=== PATIENT | male | born 1960 | race Caucasian/White ===

== ENCOUNTER 2021-11-04 02:12 | Inpatient (IN) | payer OTHER ==
[~2021-11-04] VITALS: Ht 175.3 cm; Wt 75.1 kg
--- NOTE | 2021-11-04 01:30 | NUR ---
The patient, DRAGAN LIM, 61 y/o, M admitted for Sepsis transferring from [facility] by TRENA DELACRUZ III, DO, was given written information regarding hospital policies, unit procedures and contact persons. Patient alert and oriented x 4. Patient denies any c/o at this time. Patient oriented to room, bed, call light, phone and POC. Call light in reach, Patient verbalized understanding of need to use call light for assistance. Valuables were checked and Patient states he wears glasses but left them at home. Upper and lower dentures with Patient. 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
[2021-11-04] MEDS ORDERED: PIP/TAZO PER PHARMACY MC PRN (03:00)
[2021-11-04 03:09] VITALS: BP 163/92
[2021-11-04] MEDS: PIPERACILLIN/TAZOBACTAM 3.375 GM in IV NORMAL SALINE 50ML 50 ML IV SCH ×3 (04:03→17:37)
[2021-11-04] MEDS: IV NORMAL SALINE 1000ML BAG 1,000 ML IV SCH ×2 (06:04→20:26)
[2021-11-04 06:32] LABS: BASO % 0 % (0-3); EOS % 0 % (0-3); HEMOGLOBIN 16.6 g/dL (13.0-17.5); LYMPH # 1.3 x10^3/uL (1.0-4.8); LYMPH % 28 % (24-48); MEAN CORPUSCULAR HEMOGLOBIN 34 pg (25-35); MEAN CORPUSCULAR HGB CONC 35 g/dL (31-37); MEAN CORPUSCULAR VOLUME 99 fL (79-100); MONO # 0.1 x10^3/uL (0.0-1.1); MONO % 1 % (0-9); NEUT # 3.2 x10^3/uL (1.8-7.7); NEUT % 70 % (31-73); PLATELET COUNT 189 x10^3/uL (140-400); RED BLOOD COUNT 4.85 x10^6/uL (4.30-5.70); RED CELL DISTRIBUTION WIDTH 13.7 % (11.5-14.5); WHITE BLOOD COUNT 4.6 x10^3/uL (4.0-11.0)
[2021-11-04 07:00] VITALS: BP 137/99
[2021-11-04 07:00] LABS: CALCIUM 8.6 mg/dL (8.5-10.1); CREATININE 0.8 mg/dL (0.7-1.3); GFR 98.3; POTASSIUM 3.1 mmol/L (3.5-5.1)
[2021-11-04] MEDS ORDERED: CHOL4POW6 PO (08:10)
[2021-11-04] MEDS ORDERED: BACL10TA PO (08:10)
[2021-11-04] MEDS ORDERED: HYDR-2769 PO (08:10)
[2021-11-04] MEDS ORDERED: ALLO300T PO (08:10)
[2021-11-04] MEDS ORDERED: NAPR-514 PO (08:10)
[2021-11-04] MEDS ORDERED: AMLO-187 PO (08:10)
[2021-11-04] MEDS ORDERED: OMEP40CA7 PO (08:10)
[2021-11-04] MEDS: LACTOBACILLUS RHAMNOSUS GG 1 CAPSULE. PO SCH ×2 (09:06→11:13)
[2021-11-04] MEDS ORDERED: CHOL500021 PO (09:34)
--- NOTE | 2021-11-04 10:33 | PDOC1 ---
History and Physical Date of Admission Date of Admission DATE: 11/04/21 TIME: 10:16 Identification/Chief Complaint Chief Complaint Headache/blurry vision Source Source: Patient History of Present Illness History of Present Illness Patient 61-year-old male with past medical history cerebral palsy, hemochromatosis, who presents to the ED with complaints of severe right-sided headache and right blurry vision. He was evaluated with CT head and CTA head head and neck that showed no acute findings. Labs on admission showed WBC 9.7, magnesium 0.6, CRP 3.7, lactic acid 4.3, with repeat 2.2. He notes a history of chronic weakness to lower extremities which caused him to have multiple falls over the past several years. Patient notes he has not had a fall in the past 1 or 2 years. At the time of my evaluation he is currently complaining of right- sided headache. His speech is somewhat slurred but patient states this is normal for him. His blurry vision spontaneously resolved in the ED, but he was sent to our facility for concerns of lactic acidosis and higher level care. Past Medical History Past Medical History Cerebral palsy, pulmonary hypertension, HTN, HLD, hemochromatosis Past Surgical History Past Surgical History Splenectomy Family History Family History Hemochromatosis, hypertension, pancreatic cancer Social History Smoke: No ALCOHOL: none Drugs: None Current Medications Current Medications Current Medications Sodium Chloride 1,000 ml @ 75 mls/hr [id number] IV Last administered on 11/04/21at 06:04; Start 11/04/21 at 03:00 Piperacillin Sod/ Tazobactam Sod (Zosyn Per Pharmacy) 1 each PRN DAILY PRN MC SEE COMMENTS; Start 11/04/21 at 03:00 Piperacillin Sod/ Tazobactam Sod 3.375 gm/Sodium Chloride 50 ml @ 100 mls/hr Q6HRS IV Last administered on 11/04/21at 04:03; Start 11/04/21 at 04:00 Lactobacillus Rhamnosus (Culturelle) 1 cap BID PO Last administered on 11/04/21at 09:06; Start 11/04/21 at 09:00 Active Scripts Active Reported D3-50 (Cholecalciferol (Vitamin D3)) 50,000 Unit Capsule 50,000 Unit PO WEEKLY Hydrocodone-Apap 10-325 (Hydrocodone Bit/Acetaminophen) 1 Tab Tablet 1 Tab PO PRN Q6HRS PRN Amlodipine Besylate 10 Mg Tablet 10 Mg PO DAILY Allopurinol 300 Mg Tablet 1 Tab PO DAILY Baclofen 10 Mg Tablet 1 Tab PO PRN Q4HRS PRN Omeprazole 40 Mg Capsule. 1 Cap PO DAILY Naproxen 500 Mg Tablet 1 Tab PO QIDPRN PRN 30 Days Cholestyramine Packet (Cholestyramine (With Sugar)) 4 Gm Powd.pack 4 Gm PO DAILY Allergies Allergies: Coded Allergies: morphine (Verified Allergy, Unknown, 11/04/21) ROS Review of System GENERAL: No history of weight change or fevers. SKIN: No bruising, hair changes or rashes. EYES: No blurred, double or loss of vision. NOSE AND THROAT: No history of nosebleeds, hoarseness or sore throat. HEART: Denies chest pain, denies palpitations. LUNGS: Denies cough, hemoptysis, wheezing or shortness of breath. GASTROINTESTINAL: Denies nausea, vomiting, abdominal pain. GENITOURINARY: Denies dysuria, frequency, urgency, hematuria. NEUROLOGIC: Right headache. Denies history of numbness, tingling, or tremors. PSYCHIATRIC: Denies anxiety, denies depression. ENDOCRINE: No history of heat or cold intolerance, polyuria or polydipsia. EXTREMITIES: Bilateral lower extremity weakness and difficulty walking. Denies joint pain or stiffness. Physical Exam Physical Exam General: Alert, Oriented X3, Cooperative, No acute distress HEENT: PERRLA, EOMI Lungs: Clear to auscultation, Normal air movement Heart: RRR, systolic murmur Cardiovascular: S1, S2 Abdomen: Normal bowel sounds, Soft, No tenderness Extremities: No clubbing, No cyanosis Skin: No rashes, No significant lesion Neuro: Slurred speech. Lower extremity strength 2/5 bilaterally. Upper extremity strength 4/5 bilaterally. Normal tone, Sensation intact Psych/Mental Status: Mental status NL, Mood NL Vitals Vitals Vital Signs Date Time Temp Pulse Resp B/P (MAP) Pulse Ox O2 Delivery O2 Flow Rate FiO2 11/04/21 08:00 Nasal Cannula 3.0 11/04/21 07:00 98.3 99 16 137/99 (112) 91 98.3 Labs Labs Laboratory Tests Test 11/04/21 04:50 11/04/21 05:25 Sodium Level 142 mmol/L (136-145) Potassium Level 3.1 mmol/L (3.5-5.1) Chloride Level 102 mmol/L (98-107) Carbon Dioxide Level 27 mmol/L (21-32) Anion Gap 13 (6-14) Blood Urea Nitrogen 5 mg/dL (8-26) Creatinine 0.8 mg/dL (0.7-1.3) Estimated GFR (Cockcroft-Gault) 98.3 Glucose Level 156 mg/dL (70-99) Calcium Level 8.6 mg/dL (8.5-10.1) White Blood Count 4.6 x10^3/uL (4.0-11.0) Red Blood Count 4.85 x10^6/uL (4.30-5.70) Hemoglobin 16.6 g/dL (13.0-17.5) Hematocrit 48.0 % (39.0-53.0) Mean Corpuscular Volume 99 fL (79-100) Mean Corpuscular Hemoglobin 34 pg (25-35) Mean Corpuscular Hemoglobin Concent 35 g/dL (31-37) Red Cell Distribution Width 13.7 % (11.5-14.5) Platelet Count 189 x10^3/uL (140-400) Neutrophils (%) (Auto) 70 % (31-73) Lymphocytes (%) (Auto) 28 % (24-48) Monocytes (%) (Auto) 1 % (0-9) Eosinophils (%) (Auto) 0 % (0-3) Basophils (%) (Auto) 0 % (0-3) Neutrophils # (Auto) 3.2 x10^3/uL (1.8-7.7) Lymphocytes # (Auto) 1.3 x10^3/uL (1.0-4.8) Monocytes # (Auto) 0.1 x10^3/uL (0.0-1.1) Eosinophils # (Auto) 0.0 x10^3/uL (0.0-0.7) Basophils # (Auto) 0.0 x10^3/uL (0.0-0.2) Laboratory Tests Test 11/04/21 04:50 11/04/21 05:25 Sodium Level 142 mmol/L (136-145) Potassium Level 3.1 mmol/L (3.5-5.1) Chloride Level 102 mmol/L (98-107) Carbon Dioxide Level 27 mmol/L (21-32) Anion Gap 13 (6-14) Blood Urea Nitrogen 5 mg/dL (8-26) Creatinine 0.8 mg/dL (0.7-1.3) Estimated GFR (Cockcroft-Gault) 98.3 Glucose Level 156 mg/dL (70-99) Calcium Level 8.6 mg/dL (8.5-10.1) White Blood Count 4.6 x10^3/uL (4.0-11.0) Red Blood Count 4.85 x10^6/uL (4.30-5.70) Hemoglobin 16.6 g/dL (13.0-17.5) Hematocrit 48.0 % (39.0-53.0) Mean Corpuscular Volume 99 fL (79-100) Mean Corpuscular Hemoglobin 34 pg (25-35) Mean Corpuscular Hemoglobin Concent 35 g/dL (31-37) Red Cell Distribution Width 13.7 % (11.5-14.5) Platelet Count 189 x10^3/uL (140-400) Neutrophils (%) (Auto) 70 % (31-73) Lymphocytes (%) (Auto) 28 % (24-48) Monocytes (%) (Auto) 1 % (0-9) Eosinophils (%) (Auto) 0 % (0-3) Basophils (%) (Auto) 0 % (0-3) Neutrophils # (Auto) 3.2 x10^3/uL (1.8-7.7) Lymphocytes # (Auto) 1.3 x10^3/uL (1.0-4.8) Monocytes # (Auto) 0.1 x10^3/uL (0.0-1.1) Eosinophils # (Auto) 0.0 x10^3/uL (0.0-0.7) Basophils # (Auto) 0.0 x10^3/uL (0.0-0.2) Images Images EXAM: CTA HEAD AND NECK W/WO CONTRAST DATE: 11/03/2021 5:03 PM INDICATION: Reason: sudden severe headache, vision change / Spl. Instructions: OMNI 350 100ML IV / History: TECHNIQUE: CTA angiogram of the head and neck was obtained after IV bolus administration of 75 cc of Isovue-370. The images were sent to workstation and multiplanar reconstructions were obtained. Multiplanar reconstruction images to include MIP and 3-D reconstruction images are submitted. One or more of the following dose reduction techniques were utilized: Automated exposure control (AEC), Adjustment of mA and/or kV according to patient size, Use of iterative reconstruction technique such as ASiR, CT scan done according to ALARA and image gently/image wisely COMPARISON: None. FINDINGS: CTA Head: The vertex is excluded from the [id number]. Limiting evaluation of the superior sagittal sinus. The remaining portions of the dural venous sinuses are patent. The visualized distal internal carotid arteries, anterior and middle cerebral arteries are patent and normal caliber. The distal vertebral arteries, basilar artery, and posterior cerebral arteries are patent and normal caliber. No aneurysm or arteriovenous malformation is seen. CTA Neck: Right carotid: The right common carotid artery is patent and normal caliber. The carotid bifurcation is normal. No stenosis of the right internal carotid artery per NASCET criteria. The right external carotid artery is patent. Left carotid: The left common carotid artery is patent and normal caliber. The carotid bifurcation is normal. No stenosis of the left internal carotid artery per NASCET criteria. The left external carotid artery is patent. Right vertebral: The right vertebral artery tortuous but patent and normal caliber. Left vertebral: The left vertebral artery tortuous but patent and normal caliber. The visualized portions of the aortic arch are normal. The origins of the brachiocephalic and subclavian arteries are normal. No cervical lymphadenopathy. The thyroid gland is normal. The parotid and submandibular glands are normal. The visualized aerodigestive tract is unremarkable. The cervical spine is normal. The visualized portions of the lungs are clear. IMPRESSION: 1. No aneurysm. No intracranial stenosis or occlusion. 2. No hemodynamically significant stenosis of the cervical carotid or vertebral arteries. PQRS Compliance Statement - Stenosis calculations for CT, MR and conventional angiography are based upon measurement of the distal ICA diameter in accordance with the NASCET methodology. Electronically signed by: Erica Mayer DO (11/03/2021 5:23 PM) [facility] DICTATED AND SIGNED BY: ERICA MAYER DO DATE: 11/03/211711 CC: DK GAMEZ DO; ARUN NUNEZ MD ~MTH0 0 EXAMINATION: CT head without IV contrast INDICATION:61 years, Male, vision change. COMPARISON: None TECHNIQUE: Spiral acquisition of contiguous images from the skull base to the vertex were obtained. Sagittal and coronal 2D reformatted series were provided by the technologist. Soft tissue and bone window algorithms were reviewed. Exposure: One or more of the following individualized dose reduction techniques were utilized for this examination: 1. Automated exposure control 2. Adjustment of the mA and/or kV according to patient size 3. Use of iterative reconstruction technique. FINDINGS: Neither mass, midline shift, intracranial hemorrhage, acute/subacute ischemic changes, nor extraaxial fluid collections are seen. The brain parenchyma is normal in appearance. The ventricles are normal in size. The paranasal sinuses, mastoid air cells, and middle ears are clear. The orbital contents appear within normal limits. Review of bone windows reveals no acute osseous process. IMPRESSION: No evidence of acute intracranial abnormality. PATIENT: DRAGAN LIM ACCOUNT: [id number] : 1960 LOCATION: ER AGE: 61 SEX: M EXAM STATUS: REG ER ORD. PHYSICIAN: MADHAV GARCIA MD REASON: AMS PROCEDURE: CHEST AP ONLY Exam Date: 11/03/2021 6:54 PM XR CHEST 1V Indication: Reason: AMS / Spl. Instructions: / History: . Comparison: September 09, 2021 FINDINGS/ IMPRESSION: Right basilar scarring and/or atelectasis persists. The cardiac silhouette and pulmonary vasculature are within normal limits. There is no focal consolidation, pleural effusion or pneumothorax. VTE Prophylaxis Ordered VTE Prophylaxis Devices: No VTE Pharmacological Prophylaxi: Yes Assessment/Plan Assessment/Plan Lactic acidosis CVA? Hypomagnesemia Cerebral palsy Plan: Repeat lactic acid Place consult to neurology. Some concern given his history of hemochromatosis for acute CVA, but normal CT and CTA head neck. Repeat magnesium and replace as necessary Resume home meds FEN - Cardiac diet PPX - Lovenox FULL CODE Dispo - inpatient for above Justifications for Admission Other Justification FELISHA QUINTEROS MD Nov 04, 2021 10:33
[2021-11-04 11:00] VITALS: BP 145/97
[2021-11-04] MEDS ORDERED: NAPROXEN 500 MG TABLET PO PRN (11:00)
[2021-11-04] MEDS: HYDROcodone/APAP 10/325 1 TAB TABLET PO PRN ×3 (11:12→21:22)
[2021-11-04] MEDS: PANTOPRAZOLE 40 MG TABLET.DR. PO SCH (11:13)
[2021-11-04] MEDS: ALLOPURINOL 300 MG TABLET. PO SCH (11:13)
[2021-11-04] MEDS ORDERED: POTASSIUM CHLORIDE 20 MEQ TABLET.ER. PO ONE (12:00)
--- NOTE | 2021-11-04 13:46 | NUR ---
SW following. Discussed with RN, pt from home with , 3L (uses oxygen at home), regular diet. Neurology consulted. RN advised no SW needs at this time. SW will continue to follow.
--- NOTE | 2021-11-04 14:30 | PDOC2 ---
NEUROLOGY CONSULT Date of Service DOS: DATE: 11/04/21 TIME: 14:21 Reason for Consult Reason for Consult: Possible stroke Referring Physician Referring Physician: Dr. Oconnor Source Source: Chart review, Patient History of Present Illness History of Present Illness The patient is a 61-year-old right-handed male who presented to [facility] emergency department yesterday activated as code stroke because of sudden onset of headache at 1625 with blurred vision. He says that he gets these headaches on the right side occasionally, no more than once a year, not associated with nausea or photo phonophobia. There were no other deficits, NIH score was zero in the emergency department. He responded to Toradol/Benadryl/Reglan/fentanyl. However, he was found to have gap acidosis with lactic acidosis along with hypoglycemia with blood sugar 49, hypomagnesemia, hypocalcemia, chest x-ray suspicious for pneumonia. Patient has a history of cerebral palsy and gets around with a quad cane. He has a spastic gait by his description. There is no history of stroke, seizure, or head injury Past Medical History Cardiovascular: HTN, PR, Hyperlipidemia CENTRAL NERVOUS SYSTEM: Other (Cerebral palsy, headaches) Heme/Onc: Hemochromatosis Musculoskeletal: Other (Fractures of left ankle, left arm, ribs) Past Surgical History Past Surgical History: No pertinent history Family History Family History: Cancer, Other (Migraines) Social History Social History , works for a [email or web address], alcohol on the weekends, no tobacco or street drugs Current Medications Current Medications Current Medications Sodium Chloride 1,000 ml @ 75 mls/hr [id number] IV Last administered on 11/04/21at 06:04; Start 11/04/21 at 03:00 Piperacillin Sod/ Tazobactam Sod (Zosyn Per Pharmacy) 1 each PRN DAILY PRN [facility] SEE COMMENTS; Start 11/04/21 at 03:00 Piperacillin Sod/ Tazobactam Sod 3.375 gm/Sodium Chloride 50 ml @ 100 mls/hr Q6HRS IV Last administered on 11/04/21at 04:03; Start 11/04/21 at 04:00 Lactobacillus Rhamnosus (Culturelle) 1 cap BID PO Last administered on 11/04/21at 11:13; Start 11/04/21 at 09:00 Potassium Chloride (Klor-Con) 40 meq 1X ONCE PO Last administered on 11/04/21at 11:13; Start 11/04/21 at 12:00; Stop 11/04/21 at 12:01; Status DC Allopurinol (Zyloprim) 300 mg DAILY PO Last administered on 11/04/21at 11:13; Start 11/04/21 at 12:00 Amlodipine Besylate (Norvasc) 10 mg DAILY PO Last administered on 11/04/21at 11:13; Start 11/04/21 at 12:00 Baclofen (Lioresal) 10 mg PRN Q4HRS PRN PO PAIN; Start 11/04/21 at 11:00 Acetaminophen/ Hydrocodone Bitart (Lortab 10/325) 1 tab PRN Q6HRS PRN PO PAIN Last administered on 11/04/21at 11:12; Start 11/04/21 at 11:00 Naproxen (Naprosyn) 500 mg QIDPRN PRN PO PAIN; Start 11/04/21 at 11:00 Ergocalciferol (Vitamin D2) 50,000 unit WEEKLY PO ; Start 11/11/21 at 09:00 Cholestyramine Resin (Questran Light) 4 gm DAILY PO ; Start 11/05/21 at 09:00 Pantoprazole Sodium (Protonix) 40 mg DAILYAC PO Last administered on 11/04/21at 11:13; Start 11/04/21 at 12:00 Active Scripts Active Reported D3-50 (Cholecalciferol (Vitamin D3)) 50,000 Unit Capsule 50,000 Unit PO WEEKLY Hydrocodone-Apap 10-325 (Hydrocodone Bit/Acetaminophen) 1 Tab Tablet 1 Tab PO PRN Q6HRS PRN Amlodipine Besylate 10 Mg Tablet 10 Mg PO DAILY Allopurinol 300 Mg Tablet 1 Tab PO DAILY Baclofen 10 Mg Tablet 1 Tab PO PRN Q4HRS PRN Omeprazole 40 Mg Capsule.dr 1 Cap PO DAILY Naproxen 500 Mg Tablet 1 Tab PO QIDPRN PRN 30 Days Cholestyramine Packet (Cholestyramine (With Sugar)) 4 Gm Powd.pack 4 Gm PO DAILY Allergies Allergies: Coded Allergies: morphine (Verified Allergy, Unknown, 11/04/21) ROS Review of System Negative for fever, chills, weight loss, shortness of breath, chest pain, indigestion, hematochezia, melena, and dysuria. Full 14-point review of systems is negative. Physical Exam Physical Examination General: Well-developed, well-nourished, white male, in no acute distress HEENT: Normocephalic andatraumatic. TTemporal arteriespulsatile and nontender. Neck: Supple without bruit, no meningismus Musculoskeletal: Stability:see neurologic. Gait exam:see neurologic. Tone:see neurologic.Strength:see neurologic. Neurological: Mental Status:intact, orientation, memory, attention span/concentration, language, fund of knowledge normal. Cranial Nerves:Pupils equal and reactive to light, extraocular movements areintact, visual rothman are full to confrontation. Facial sensation is normal. There is no facial asymmetry. Spastic dysarthria. Vestibulo-ocular reflex is intact. Palate elevates and tongue protrudes in midline. All other cranial related problems are negative except as mentioned before.Reflexes:2+ and symmetric with flexor plantar res ponses. Motor:5/5 strength increased tone bilaterally, normal bulk. Coordination:Finger-nose finger and vigb-un-tcta testing are normal. Rapid alternating movements and fine finger movements are intact. Gait:Not tested, he does not have his cane with him. Sensory:Normal pinprick, vibration, light touch, proprioception. Vitals VITALS Vital Signs Date Time Temp Pulse Resp B/P (MAP) Pulse Ox O2 Delivery O2 Flow Rate FiO2 11/04/21 11:13 99 137/99 11/04/21 08:00 Nasal Cannula 3.0 11/04/21 07:00 98.3 16 91 98.3 Labs Labs Laboratory Tests Test 11/04/21 04:50 11/04/21 05:25 11/04/21 11:11 Sodium Level 142 mmol/L (136-145) Potassium Level 3.1 mmol/L (3.5-5.1) Chloride Level 102 mmol/L (98-107) Carbon Dioxide Level 27 mmol/L (21-32) Anion Gap 13 (6-14) Blood Urea Nitrogen 5 mg/dL (8-26) Creatinine 0.8 mg/dL (0.7-1.3) Estimated GFR (Cockcroft-Gault) 98.3 Glucose Level 156 mg/dL (70-99) Calcium Level 8.6 mg/dL (8.5-10.1) Magnesium Level 2.1 mg/dL (1.8-2.4) White Blood Count 4.6 x10^3/uL (4.0-11.0) Red Blood Count 4.85 x10^6/uL (4.30-5.70) Hemoglobin 16.6 g/dL (13.0-17.5) Hematocrit 48.0 % (39.0-53.0) Mean Corpuscular Volume 99 fL (79-100) Mean Corpuscular Hemoglobin 34 pg (25-35) Mean Corpuscular Hemoglobin Concent 35 g/dL (31-37) Red Cell Distribution Width 13.7 % (11.5-14.5) Platelet Count 189 x10^3/uL (140-400) Neutrophils (%) (Auto) 70 % (31-73) Lymphocytes (%) (Auto) 28 % (24-48) Monocytes (%) (Auto) 1 % (0-9) Eosinophils (%) (Auto) 0 % (0-3) Basophils (%) (Auto) 0 % (0-3) Neutrophils # (Auto) 3.2 x10^3/uL (1.8-7.7) Lymphocytes # (Auto) 1.3 x10^3/uL (1.0-4.8) Monocytes # (Auto) 0.1 x10^3/uL (0.0-1.1) Eosinophils # (Auto) 0.0 x10^3/uL (0.0-0.7) Basophils # (Auto) 0.0 x10^3/uL (0.0-0.2) Lactic Acid Level 1.2 mmol/L (0.4-2.0) Laboratory Tests Test 11/04/21 04:50 11/04/21 05:25 11/04/21 11:11 Sodium Level 142 mmol/L (136-145) Potassium Level 3.1 mmol/L (3.5-5.1) Chloride Level 102 mmol/L (98-107) Carbon Dioxide Level 27 mmol/L (21-32) Anion Gap 13 (6-14) Blood Urea Nitrogen 5 mg/dL (8-26) Creatinine 0.8 mg/dL (0.7-1.3) Estimated GFR (Cockcroft-Gault) 98.3 Glucose Level 156 mg/dL (70-99) Calcium Level 8.6 mg/dL (8.5-10.1) Magnesium Level 2.1 mg/dL (1.8-2.4) White Blood Count 4.6 x10^3/uL (4.0-11.0) Red Blood Count 4.85 x10^6/uL (4.30-5.70) Hemoglobin 16.6 g/dL (13.0-17.5) Hematocrit 48.0 % (39.0-53.0) Mean Corpuscular Volume 99 fL (79-100) Mean Corpuscular Hemoglobin 34 pg (25-35) Mean Corpuscular Hemoglobin Concent 35 g/dL (31-37) Red Cell Distribution Width 13.7 % (11.5-14.5) Platelet Count 189 x10^3/uL (140-400) Neutrophils (%) (Auto) 70 % (31-73) Lymphocytes (%) (Auto) 28 % (24-48) Monocytes (%) (Auto) 1 % (0-9) Eosinophils (%) (Auto) 0 % (0-3) Basophils (%) (Auto) 0 % (0-3) Neutrophils # (Auto) 3.2 x10^3/uL (1.8-7.7) Lymphocytes # (Auto) 1.3 x10^3/uL (1.0-4.8) Monocytes # (Auto) 0.1 x10^3/uL (0.0-1.1) Eosinophils # (Auto) 0.0 x10^3/uL (0.0-0.7) Basophils # (Auto) 0.0 x10^3/uL (0.0-0.2) Lactic Acid Level 1.2 mmol/L (0.4-2.0) Images Images EXAM: CTA HEAD AND NECK W/WO CONTRAST DATE: 11/03/2021 5:03 PM INDICATION: Reason: sudden severe headache, vision change / Spl. Instructions: OMNI 350 100ML IV / History: TECHNIQUE: CTA angiogram of the head and neck was obtained after IV bolus administration of 75 cc of Isovue-370. The images were sent to workstation and multiplanar reconstructions were obtained. Multiplanar reconstruction images to include MIP and 3-D reconstruction images are submitted. One or more of the following dose reduction techniques were utilized: Automated exposure control (AEC), Adjustment of mA and/or kV according to patient size, Use of iterative reconstruction technique such as ASiR, CT scan done according to ALARA and image gently/image wisely COMPARISON: None. FINDINGS: CTA Head: The vertex is excluded from the [id number]. Limiting evaluation of the superior sagittal sinus. The remaining portions of the dural venous sinuses are patent. The visualized distal internal carotid arteries, anterior and middle cerebral arteries are patent and normal caliber. The distal vertebral arteries, basilar artery, and posterior cerebral arteries are patent and normal caliber. No aneurysm or arteriovenous malformation is seen. CTA Neck: Right carotid: The right common carotid artery is patent and normal caliber. The carotid bifurcation is normal. No stenosis of the right internal carotid artery per NASCET criteria. The right external carotid artery is patent. Left carotid: The left common carotid artery is patent and normal caliber. The carotid bifurcation is normal. No stenosis of the left internal carotid artery per NASCET criteria. The left external carotid artery is patent. Right vertebral: The right vertebral artery tortuous but patent and normal caliber. Left vertebral: The left vertebral artery tortuous but patent and normal caliber. The visualized portions of the aortic arch are normal. The origins of the brachiocephalic and subclavian arteries are normal. No cervical lymphadenopathy. The thyroid gland is normal. The parotid and submandibular glands are normal. The visualized aerodigestive tract is unremarkable. The cervical spine is normal. The visualized portions of the lungs are clear. IMPRESSION: 1. No aneurysm. No intracranial stenosis or occlusion. 2. No hemodynamically significant stenosis of the cervical carotid or vertebral arteries. EXAMINATION: CT head without IV contrast INDICATION:61 years, Male, vision change. COMPARISON: None TECHNIQUE: Spiral acquisition of contiguous images from the skull base to the vertex were obtained. Sagittal and coronal 2D reformatted series were provided by the technologist. Soft tissue and bone window algorithms were reviewed. Exposure: One or more of the following individualized dose reduction techniques were utilized for this examination: 1. Automated exposure control 2. Adjustment of the mA and/or kV according to patient size 3. Use of iterative reconstruction technique. FINDINGS: Neither mass, midline shift, intracranial hemorrhage, acute/subacute ischemic changes, nor extraaxial fluid collections are seen. The brain parenchyma is normal in appearance. The ventricles are normal in size. The paranasal sinuses, mastoid air cells, and middle ears are clear. The orbital contents appear within normal limits. Review of bone windows reveals no acute osseous process. IMPRESSION: No evidence of acute intracranial abnormality. Assessment/Plan Assessment/Plan Impression: Toxic headache due to sepsis syndrome, has some migraine features, has had these headaches in the past. Headache has resolved Sepsis picture yesterday with lactic acidosis along with hypoglycemia with blood sugar 49, hypomagnesemia, hypocalcemia, chest x-ray suspicious for pneumonia No evidence that he has had a stroke or aneurysmal bleed History of cerebral palsy with gait disorder. Spastic diplegia picture, but is not weak at all. Recommendations: No additional neurological studies or treatment needed, specifically no need for MRI or placing the patient on the stroke pathway Treat medical issues I suspect he will be able to be discharged tomorrow. Follow-up with neurology as needed. Thank you for letting me help with the patient's care. JOSIAS GARCIA MD Nov 04, 2021 14:30
[2021-11-04 15:00] VITALS: BP 145/89
[2021-11-04 19:00] VITALS: BP 135/75
[2021-11-04] MEDS ORDERED: LORazepam 0.5 MG TABLET PO PRN (19:30)
[2021-11-04] MEDS ORDERED: MAG HYDROX/ALUMINUM HYD/SIMETH 30 ML ORAL.SUSP PO PRN (19:30)
[2021-11-04] MEDS ORDERED: ZOLPIDEM 5 MG TABLET. PO PRN (19:30)
[2021-11-04] MEDS ORDERED: ACETAMINOPHEN 325 MG TABLET. PO PRN (19:30)
[2021-11-04] MEDS ORDERED: diphenhydrAMINE 50 MG/ML VIAL IVP PRN (19:30)
[2021-11-04] MEDS ORDERED: DOCUSATE SODIUM 100 MG CAPSULE. PO PRN (19:30)
[2021-11-04] MEDS: BACLOFEN 10 MG TABLET. PO PRN (20:26)
[2021-11-04] MEDS ORDERED: ENOXAPARIN 40 MG/0.4 ML SYRINGE. SQ SCH (21:00)
[2021-11-04 23:15] VITALS: BP 121/88
[2021-11-05 03:01] VITALS: BP 142/92
[2021-11-05] MEDS: IV NORMAL SALINE 1000ML BAG 1,000 ML IV SCH (05:14)
[2021-11-05 07:00] VITALS: BP 144/82
--- NOTE | 2021-11-05 08:36 | PDOC ---
PROGRESS NOTES Date of Service DATE: 11/05/21 TIME: 08:34 Assessment Toxic headache due to sepsis syndrome, has some migraine features, has had these headaches in the past. Headache had resolved, has some mild pain behind the right ear now Sepsis picture 11/03 with lactic acidosis along with hypoglycemia with blood sugar 49, hypomagnesemia, hypocalcemia, chest x-ray suspicious for pneumonia No evidence that he has had a stroke or aneurysmal bleed History of cerebral palsy with gait disorder. Spastic diplegia picture, but is not weak at all. Plan No additional neurological studies or treatment needed, specifically no need for MRI or placing the patient on the stroke pathway Treat medical issues Okay for discharge Follow-up with neurology as needed. Subjective No other complaints, wants to go home Objective Vital Signs Date Time Temp Pulse Resp B/P (MAP) Pulse Ox O2 Delivery O2 Flow Rate FiO2 11/05/21 07:00 98.6 55 20 144/82 (102) 92 Nasal Cannula 2.0 98.6 Intake and Output 11/05/21 07:00 Output Total 950 ml Balance -950 ml Output Urine Total 950 ml PHYSICAL EXAM Alert. Oriented to time, place and person. PERRL. EOMI. CN: Spastic dysarthria, otherwise no focal findings. Muscle tone: Increased in all 4 extremities Muscle strength: 5/5 DTR: 2+ Plantar reflex: Flexor Gait: not examined in bed. Sensory exam: no abnormal findings. No cerebellar signs elicited. Review of Relevant I have reviewed the following items samina (where applicable) has been applied. Labs Laboratory Tests Test 11/04/21 04:50 11/04/21 05:25 11/04/21 11:11 Sodium Level 142 mmol/L (136-145) Potassium Level 3.1 mmol/L (3.5-5.1) Chloride Level 102 mmol/L (98-107) Carbon Dioxide Level 27 mmol/L (21-32) Anion Gap 13 (6-14) Blood Urea Nitrogen 5 mg/dL (8-26) Creatinine 0.8 mg/dL (0.7-1.3) Estimated GFR (Cockcroft-Gault) 98.3 Glucose Level 156 mg/dL (70-99) Calcium Level 8.6 mg/dL (8.5-10.1) Magnesium Level 2.1 mg/dL (1.8-2.4) White Blood Count 4.6 x10^3/uL (4.0-11.0) Red Blood Count 4.85 x10^6/uL (4.30-5.70) Hemoglobin 16.6 g/dL (13.0-17.5) Hematocrit 48.0 % (39.0-53.0) Mean Corpuscular Volume 99 fL (79-100) Mean Corpuscular Hemoglobin 34 pg (25-35) Mean Corpuscular Hemoglobin Concent 35 g/dL (31-37) Red Cell Distribution Width 13.7 % (11.5-14.5) Platelet Count 189 x10^3/uL (140-400) Neutrophils (%) (Auto) 70 % (31-73) Lymphocytes (%) (Auto) 28 % (24-48) Monocytes (%) (Auto) 1 % (0-9) Eosinophils (%) (Auto) 0 % (0-3) Basophils (%) (Auto) 0 % (0-3) Neutrophils # (Auto) 3.2 x10^3/uL (1.8-7.7) Lymphocytes # (Auto) 1.3 x10^3/uL (1.0-4.8) Monocytes # (Auto) 0.1 x10^3/uL (0.0-1.1) Eosinophils # (Auto) 0.0 x10^3/uL (0.0-0.7) Basophils # (Auto) 0.0 x10^3/uL (0.0-0.2) Lactic Acid Level 1.2 mmol/L (0.4-2.0) Laboratory Tests Test 11/04/21 11:11 Lactic Acid Level 1.2 mmol/L (0.4-2.0) Medications Current Medications Sodium Chloride 1,000 ml @ 75 mls/hr [id number] IV Last administered on 11/05/21at 05:14; Start 11/04/21 at 03:00 Piperacillin Sod/ Tazobactam Sod (Zosyn Per Pharmacy) 1 each PRN DAILY PRN [facility] SEE COMMENTS; Start 11/04/21 at 03:00; Stop 11/04/21 at 19:29; Status DC Piperacillin Sod/ Tazobactam Sod 3.375 gm/Sodium Chloride 50 ml @ 100 mls/hr Q6HRS IV Last administered on 11/04/21at 17:37; Start 11/04/21 at 04:00; Stop 11/04/21 at 19:29; Status DC Lactobacillus Rhamnosus (Culturelle) 1 cap BID PO Last administered on 11/04/21at 11:13; Start 11/04/21 at 09:00 Potassium Chloride (Klor-Con) 40 meq 1X ONCE PO Last administered on 11/04/21 11:13; Start 11/04/21 at 12:00; Stop 11/04/21 at 12:01; Status DC Allopurinol (Zyloprim) 300 mg DAILY PO Last administered on 11/04/21 11:13; Start 11/04/21 at 12:00 Amlodipine Besylate (Norvasc) 10 mg DAILY PO Last administered on 11/04/21at 11:13; Start 11/04/21 at 12:00 Baclofen (Lioresal) 10 mg PRN Q4HRS PRN PO PAIN Last administered on 11/04/21at 20:26; Start 11/04/21 at 11:00 Acetaminophen/ Hydrocodone Bitart (Lortab 10/325) 1 tab PRN Q6HRS PRN PO PAIN Last administered on 11/04/21at 21:22; Start 11/04/21 at 11:00 Naproxen (Naprosyn) 500 mg QIDPRN PRN PO PAIN; Start 11/04/21 at 11:00 Ergocalciferol (Vitamin D2) 50,000 unit WEEKLY PO ; Start 11/11/21 at 09:00 Cholestyramine Resin (Questran Light) 4 gm DAILY PO ; Start 11/05/21 at 09:00 Pantoprazole Sodium (Protonix) 40 mg DAILYAC PO Last administered on 11/04/21at 11:13; Start 11/04/21 at 12:00 Zolpidem Tartrate (Ambien) 5 mg PRN QHS PRN PO INSOMNIA; Start 11/04/21 at 19:30 Acetaminophen (Tylenol) 650 mg PRN Q4HRS PRN PO TEMP OVER 100.4F OR MILD PAIN; Start 11/04/21 at 19:30 Al Hydroxide/Mg Hydroxide (Mylanta Plus Xs) 30 ml PRN DAILY PRN PO HEARTBURN / GAS; Start 11/04/21 at 19:30 Diphenhydramine HCl (Benadryl) 25 mg PRN Q4HRS PRN IVP ITCHING; Start 11/04/21 at 19:30 Docusate Sodium (Colace) 100 mg PRN BID PRN PO HARD STOOLS; Start 11/04/21 at 19:30 Lorazepam (Ativan) 0.5 mg PRN Q4HRS PRN PO ANXIETY / AGITATION; Start 11/04/21 at 19:30 Enoxaparin Sodium (Lovenox 40mg Syringe) 40 mg Q24H SQ Last administered on 11/04/21at 20:26; Start 11/04/21 at 21:00 Active Scripts Active Reported D3-50 (Cholecalciferol (Vitamin D3)) 50,000 Unit Capsule 50,000 Unit PO WEEKLY Hydrocodone-Apap 10-325 (Hydrocodone Bit/Acetaminophen) 1 Tab Tablet 1 Tab PO PRN Q6HRS PRN Amlodipine Besylate 10 Mg Tablet 10 Mg PO DAILY Allopurinol 300 Mg Tablet 1 Tab PO DAILY Baclofen 10 Mg Tablet 1 Tab PO PRN Q4HRS PRN Omeprazole 40 Mg Capsule.dr 1 Cap PO DAILY Naproxen 500 Mg Tablet 1 Tab PO QIDPRN PRN 30 Days Cholestyramine Packet (Cholestyramine (With Sugar)) 4 Gm Powd.pack 4 Gm PO DAILY Vitals/I & O Vital Sign - Last 24 Hours 11/04/21 11/04/21 11/04/21 11/04/21 11:00 11:13 15:00 15:18 Temp 98.1 98.3 98.1 98.3 Pulse 85 99 85 Resp 14 16 18 B/P (MAP) 145/97 (113) 137/99 145/89 (107) Pulse Ox 90 91 O2 Delivery Nasal Cannula Room Air Nasal Cannula O2 Flow Rate 2.0 2.0 11/04/21 11/04/21 11/04/21 11/05/21 19:00 20:00 23:15 03:01 Temp 97.5 97.3 98.2 97.5 97.3 98.2 Pulse 73 63 78 Resp 18 18 18 B/P (MAP) 135/75 (95) 121/88 (99) 142/92 (109) Pulse Ox 92 91 92 O2 Delivery Nasal Cannula Nasal Cannula Nasal Cannula Nasal Cannula O2 Flow Rate 2.0 3.0 2.0 2.0 11/05/21 07:00 Temp 98.6 98.6 Pulse 55 Resp 20 B/P (MAP) 144/82 (102) Pulse Ox 92 O2 Delivery Nasal Cannula O2 Flow Rate 2.0 Intake and Output 11/04/21 11/04/21 11/05/21 15:00 23:00 07:00 Output Total 400 ml 200 ml 350 ml Balance -400 ml -200 ml -350 ml Justicifation of Admission Dx: Justifications for Admission: Justification of Admission Dx: N/A JOSIAS GARCIA MD Nov 05, 2021 08:36
[2021-11-05] MEDS ORDERED: CHOLESTYRAMINE/ASPARTAME 4 GM PACKET PO SCH (09:00)
[2021-11-05] MEDS: PANTOPRAZOLE 40 MG TABLET.DR. PO SCH (09:43)
[2021-11-05] MEDS: LACTOBACILLUS RHAMNOSUS GG 1 CAPSULE. PO SCH (09:43)
[2021-11-05] MEDS: ALLOPURINOL 300 MG TABLET. PO SCH (09:43)
[2021-11-05] MEDS: BACLOFEN 10 MG TABLET. PO PRN (09:49)
[2021-11-05 11:00] VITALS: BP 162/64
--- NOTE | 2021-11-05 12:29 | PDOC ---
[facility] [facility] PROGRESS NOTE Date of Service DOS: DATE: 11/05/21 TIME: 12:28 Chief Complaint Chief Complaint Toxic headache or migrane, neuro consjult possible sepsis with lactic acidosis along with hypoglycemia with blood sugar 49, hypomagnesemia, hypocalcemia History of cerebral palsy with gait disorder. Spastic diplegia picture, History of Present Illness History of Present Illness cleared by neuro PT and OT if able abdx Vitals/I&O Vitals/I&O: Vital Signs Date Time Temp Pulse Resp B/P (MAP) Pulse Ox O2 Delivery O2 Flow Rate FiO2 11/05/21 11:00 97.5 54 18 162/64 (96) 93 Nasal Cannula 2.0 97.5 I & O 11/04/21 11/04/21 11/05/21 15:00 23:00 07:00 Output Total 400 ml 200 ml 350 ml Balance -400 ml -200 ml -350 ml Physical Exam General: Alert, No acute distress Heart: Regular rate, No murmurs Extremities: No cyanosis Skin: No rashes Comment Review of Relevant I have reviewed the following items samina (where applicable) has been applied. Medications: Current Medications Medications (Trade) Dose Ordered Sig/Mary Route PRN Reason Start Time Stop Time Status Last Admin Dose Admin Cholestyramine Resin (Questran Light) 4 gm DAILY PO 11/05/21 09:00 11/05/21 10:43 Acetaminophen (Tylenol) 650 mg PRN Q4HRS PRN PO TEMP OVER 100.4F OR MILD PAIN 11/04/21 19:30 11/05/21 09:49 Docusate Sodium (Colace) 100 mg PRN BID PRN PO HARD STOOLS 11/04/21 19:30 11/05/21 09:42 Enoxaparin Sodium (Lovenox 40mg Syringe) 40 mg Q24H SQ 11/04/21 21:00 11/04/21 20:26 Justifications for Admission Other Justification HIPOLITO GARCIA MD Nov 05, 2021 12:29
[2021-11-05] MEDS ORDERED: HYDR-2769 PO (14:35)
[2021-11-05 15:00] VITALS: BP 137/84
--- NOTE | 2021-11-05 15:21 | NUR ---
SW following. Discussed with RN, discharge order for home with self care. RN advised no SW needs.
--- NOTE | 2021-11-05 16:12 | NUR ---
Patient escorted to main entrance by wheelchair with , IVs, and telemonitor discontinued by Fady WRIGHT. Discharge education given.
[2021-11-11] MEDS ORDERED: ERGOCALCIFEROL (VITAMIN D2) 50,000 UNIT CAPSULE. PO SCH (09:00)
== END 2021-11-05 16:12 | disposition home or self-care (01) | DRG 872 ==
LOC: 5 NORTH 02:12
PROVIDERS: ADMIT Internal Medicine; ATTEND Internal Medicine
DX: A41.9 Sepsis, unspecified organism (principal); G80.1 Spastic diplegic cerebral palsy; N39.0 Urinary tract infection, site not specified; E16.2 Hypoglycemia, unspecified; E78.5 Hyperlipidemia, unspecified; E83.42 Hypomagnesemia; E83.51 Hypocalcemia; G43.909 Migraine, unspecified, not intractable, without status migrainosus; I10 Essential (primary) hypertension; I27.20 Pulmonary hypertension, unspecified; Z80.0 Family history of malignant neoplasm of digestive organs; Z82.49 Family history of ischemic heart disease and other diseases of the circulatory system; Z90.81 Acquired absence of spleen; Z91.81 History of falling
CPT/HCPCS: 36415; 80048; 83605; 83735; 85025; J1650; J2543; J7030; G0378